=== PATIENT | male | born 1965 | race Caucasian/White ===

== ENCOUNTER 2024-08-05 17:31 | Emergency (ER) | payer SELFPAY ==
[~2024-08-05] VITALS: Ht 165.1 cm; Wt 90.7 kg
[2024-08-05 17:40] VITALS: BP 158/86; PULSE 72; RESP 16; TEMP 97.1; O2SAT 96
[2024-08-05] MEDS: KETOROLAC 30 MG/ML VIAL IM ONE (18:36)
[2024-08-05] MEDS ORDERED: CEPH-588 PO (19:12)
[2024-08-05] MEDS ORDERED: IBUP-1842 PO (19:12)
== END 2024-08-05 19:22 | disposition home or self-care (01) ==
LOC: MED 17:31
DX: S51.811A Laceration without foreign body of right forearm, initial encounter (principal); Z79.899 Other long term (current) drug therapy; W26.8XXA Contact with other sharp object(s), not elsewhere classified, initial encounter; Y93.89 Activity, other specified; Y92.098 Other place in other non-institutional residence as the place of occurrence of the external cause; Y99.8 Other external cause status
CPT/HCPCS: 12001; 90471; 90715; 96372; 99284; J1885

== ENCOUNTER 2024-08-11 12:49 | Emergency (ER) | payer OTHER ==
[~2024-08-11] VITALS: Ht 165.1 cm; Wt 92.2 kg
[~2024-08-11 12:49] MED LIST: CEPH-588 PO; IBUP-1842 PO
[2024-08-11 13:03] VITALS: BP 155/81; PULSE 58; RESP 18; TEMP 97.5; O2SAT 98
== END 2024-08-11 13:41 | disposition home or self-care (01) ==
LOC: MED 12:49
DX: S51.811D Laceration without foreign body of right forearm, subsequent encounter (principal); Z48.02 Encounter for removal of sutures; R03.0 Elevated blood-pressure reading, without diagnosis of hypertension; Z98.890 Other specified postprocedural states; Z79.899 Other long term (current) drug therapy; X58.XXXD Exposure to other specified factors, subsequent encounter
CPT/HCPCS: 99281